=== PATIENT | male | born 1955 | race Hispanic/Latino ===

== ENCOUNTER → 2024-09-11 | Day surgery (SDC) | payer MEDICARE ==
[2024-09-10 09:07] LABS: BASOPHILS # (AUTO) 0.1 (0.0-0.1); BASOPHILS % 0.5 % (0.0-1.0); EOSINOPHILS # (AUTO) 0.5 (0.0-0.4); EOSINOPHILS % 5.4 % (0.0-6.0); HEMATOCRIT 45.2 % (38.2-49.6); LYMPHOCYTES # (AUTO) 1.4 (1.0-3.2); LYMPHOCYTES % 14.4 % (18.0-39.1); MEAN CORPUSCULAR HEMOGLOBIN 32.8 pg (28-32); MEAN CORPUSCULAR VOLUME 105.9 fL (81-99); MONOCYTES # (AUTO) 0.7 (0.2-0.8); MONOCYTES % 6.8 % (4.4-11.3); NEUTROPHILS # (AUTO) 6.9 (2.1-6.9); NEUTROPHILS % 72.7 % (38.7-80.0); PLATELET COUNT 133 x10e3/uL (140-360); RED BLOOD COUNT 4.27 x10e6/uL (4.3-5.7); RED CELL DISTRIBUTION WIDTH 13.2 % (11.7-14.4); WHITE BLOOD COUNT 9.52 x10e3/uL (4.8-10.8)
[2024-09-10 09:46] LABS: ALBUMIN/GLOBULIN RATIO 1.3 (0.8-2.0); ANION GAP 17.5 mmol/L (8-16); BILIRUBIN,TOTAL 1.5 mg/dL (0.2-1.2); CALCIUM 9.3 mg/dL (8.4-10.2); CREATININE, SERUM 2.34 mg/dL (0.72-1.25); POTASSIUM 4.5 mmol/L (3.5-5.1); TOTAL PROTEIN 7.1 g/dL (6.5-8.1)
[~2024-09-11] MED LIST: ACETAMINOPHEN 1000 MG/100 ML 100 ML IV ONE; AMIODARONE HCL200 MG PO; ASPIRIN EC81 MG PO; ATORVASTATIN CA20 MG PO; FENTANYL CITRATE/PF 100MCG/2 ML INJ ONE; FUROSEMIDE40 MG PO; GLIMEPIRIDE2 MG PO; GLYCOPYRROLATE INJ 0.2 MG/ML VIAL ONE; IRON INFUSION IV; LACTATED RINGER'S 1,000 ML ONE; LIDOCAINE HCL 2% LOCAL INJ 5 ML SDV VIAL INJ ONE; LOSARTAN POTASS25 MG PO; METOPROLOL TART25 MG PO; MIDAZOLAM HCL 2 MG/2 ML VIAL ONE; NEOSTIGMINE 1 MG/ML 10ML VIAL ONE; ONDANSETRON HCL INJ 2MG/ML 2ML 2 MG/ML VIAL ONE; PROPOFOL IV EMULSION 10 MG/ML 20 ML VIAL ONE; ROCURONIUM BROMIDE 1 ML IV ONE; SEVOFLURANE INHAL SOLN 250 ML PEN BTL ONE
[2024-09-11 10:14] VITALS: TEMP 97.8
[2024-09-11 11:30] VITALS: BP 149/84; PULSE 58; RESP 16; O2SAT 97
== END | disposition home or self-care (01) ==
LOC: OR 06:44
PROVIDERS: ATTEND Surgery
DX: K80.10 Calculus of gallbladder with chronic cholecystitis without obstruction (principal); K76.0 Fatty (change of) liver, not elsewhere classified; E11.9 Type 2 diabetes mellitus without complications; I10 Essential (primary) hypertension; E78.5 Hyperlipidemia, unspecified; Z01.810 Encounter for preprocedural cardiovascular examination; Z01.812 Encounter for preprocedural laboratory examination; Z01.818 Encounter for other preprocedural examination; Z79.82 Long term (current) use of aspirin; Z79.84 Long term (current) use of oral hypoglycemic drugs; Z79.899 Other long term (current) drug therapy
CPT/HCPCS: 36415; 47562; 71046; 80053; 85025; 88304; 93005; C1766; J0131; J2003; J2250; J2405; J2704; J2710; J3010; J7121

== ENCOUNTER 2025-04-12 08:59 | Inpatient (IN) | payer MEDICARE, OTHER ==
[~2025-04-12] VITALS: Ht 167.6 cm; Wt 90.7 kg
[~2025-04-12 08:59] MED LIST changes: -ACETAMINOPHEN 1000 MG/100 ML 100 ML IV ONE; -FENTANYL CITRATE/PF 100MCG/2 ML INJ ONE; -GLYCOPYRROLATE INJ 0.2 MG/ML VIAL ONE; -LACTATED RINGER'S 1,000 ML ONE; -LIDOCAINE HCL 2% LOCAL INJ 5 ML SDV VIAL INJ ONE; -MIDAZOLAM HCL 2 MG/2 ML VIAL ONE; -NEOSTIGMINE 1 MG/ML 10ML VIAL ONE; -ONDANSETRON HCL INJ 2MG/ML 2ML 2 MG/ML VIAL ONE; -PROPOFOL IV EMULSION 10 MG/ML 20 ML VIAL ONE; -ROCURONIUM BROMIDE 1 ML IV ONE; -SEVOFLURANE INHAL SOLN 250 ML PEN BTL ONE
[2025-04-12 09:06] VITALS: TEMP 98.4
[2025-04-12] MEDS ORDERED: ONDANSETRON HCL INJ 2MG/ML 2ML 2 MG/ML VIAL IV PRN (10:30)
[2025-04-12] MEDS ORDERED: Morphine 4mg INJECTION 4 MG/ML INJ IV PRN (10:30)
[2025-04-12] MEDS: SODIUM CHLORIDE 0.9% 1000ML 1,000 ML IV SCH (10:46)
[2025-04-12] MEDS: SODIUM CHLORIDE 0.9% 1000ML 1,000 ML IV STA (10:46)
[2025-04-12 10:56] LABS: EST GLOMERULAR FILTRATION RATE 29.0 ML/MIN (>=60)
[2025-04-12 11:35] LABS: BASOPHILS % 0.1 % (0.0-1.0); EOSINOPHILS % 1.2 % (0.0-6.0); LYMPHOCYTES % 13.2 % (18.0-39.1); MONOCYTES % 5.4 % (4.4-11.3); NEUTROPHILS % 79.8 % (38.7-80.0); RED CELL DISTRIBUTION WIDTH 18.6 % (11.7-14.4)
[2025-04-12 12:11] LABS: AMPHETAMINES SCREEN,URINE NEGATIVE (NEGATIVE); CANNABINOIDS SCREEN,URINE NEGATIVE (NEGATIVE); COCAINE SCREEN,URINE NEGATIVE (NEGATIVE); METHADONE SCREEN, URINE NEGATIVE (NEGATIVE); OPIATES SCREEN,URINE NEGATIVE (NEGATIVE)
[2025-04-12 13:00] VITALS: PULSE 75; RESP 17
[2025-04-12 13:07] LABS: PLATELET ESTIMATE ADEQUATE; PLATELET MORPHOLOGY COMMENT NORMAL; RBC MORPHOLOGY COMMENT ABNORMAL
[2025-04-12 14:33] VITALS: BP 129/69; PULSE 72; RESP 16; TEMP 98.1; O2SAT 97
[2025-04-12] MEDS ORDERED: ROCKLATAN 0.022.5 ML OP (14:50)
[2025-04-12] MEDS ORDERED: FUROSEMIDE20 MG PO (14:50)
[2025-04-12] MEDS ORDERED: DORZOLAMIDE-TIM10 ML OP (14:50)
[2025-04-12] MEDS ORDERED: DAILY VALUE1 EACH PO (14:50)
[2025-04-12 16:04] VITALS: BP 125/59; PULSE 62; RESP 20; TEMP 97.7; O2SAT 100
[2025-04-12] MEDS: SODIUM CHLORIDE 0.9% 250ML 250 ML IV ONE ×2 (16:23→23:23)
[2025-04-12] MEDS: SODIUM CHLORIDE 0.9% 250ML 250 ML ONE (16:23)
[2025-04-12 17:07] VITALS: BP 125/59; PULSE 62; RESP 20; TEMP 97.7; O2SAT 100
[2025-04-12] MEDS ORDERED: ACETAMINOPHEN 325 MG TAB PO PRN (17:45)
[2025-04-12 18:19] LABS: % IRON SATURATION 16 % (15-50)
[2025-04-12 20:00] VITALS: BP 125/54; PULSE 76; RESP 20; TEMP 98.8; O2SAT 96
[2025-04-13] VITALS (8 sets, daily range): BP systolic 115–139; BP diastolic 51–61; PULSE 67–96; RESP 18–20; TEMP 98–98.9; O2SAT 94–100
[2025-04-13] MEDS: FUROSEMIDE INJ 10 MG/ML 2 ML VIAL IV PRN (01:15)
[2025-04-13] MEDS: SODIUM CHLORIDE 0.9% 250ML 250 ML IV ONE (03:47)
[2025-04-13 07:48] LABS: BASOPHILS % 0.2 % (0.0-1.0); EOSINOPHILS % 2.8 % (0.0-6.0); LYMPHOCYTES % 10.1 % (18.0-39.1); MONOCYTES % 5.5 % (4.4-11.3); NEUTROPHILS % 80.9 % (38.7-80.0); RED CELL DISTRIBUTION WIDTH 24.9 % (11.7-14.4)
[2025-04-13 08:06] LABS: EST GLOMERULAR FILTRATION RATE 30.0 ML/MIN (>=60)
[2025-04-13] MEDS: CYANOCOBALAMIN INJ 1,000 MCG/ML VIAL IM SCH (08:46)
[2025-04-13] MEDS: CLOPIDOGREL BISULFATE 75 MG TAB PO SCH (08:46)
[2025-04-14] VITALS (8 sets, daily range): BP systolic 112–151; BP diastolic 49–55; PULSE 75–80; RESP 14–20; TEMP 98.1–98.9; O2SAT 91–97
[2025-04-14] MEDS ORDERED: ALBUTEROL/IPRATROPIUM 3 ML NEB NEB PRN (07:45)
[2025-04-14] MEDS ORDERED: BENZONATATE 100 MG CAP PO PRN (07:45)
[2025-04-14] MEDS ORDERED: DEXTROSE 50% SYRINGE 50 ML IV PRN (07:45)
[2025-04-14] MEDS: FUROSEMIDE INJ 10 MG/ML 4 ML VIAL IV ONE (10:34)
[2025-04-14] MEDS: INSULIN LISPRO 100 UNIT/1 ML 3ML VIAL SQ SCH (12:41)
[2025-04-14] MEDS: HYDRALAZINE HCL 25 MG TAB PO PRN (21:18)
[2025-04-15] VITALS (10 sets, daily range): BP systolic 128–140; BP diastolic 49–65; PULSE 74–92; RESP 17–20; TEMP 97.5–99.1; O2SAT 94–96
[2025-04-15 07:59] LABS: BASOPHILS % 0.2 % (0.0-1.0); EOSINOPHILS % 1.8 % (0.0-6.0); LYMPHOCYTES % 10.9 % (18.0-39.1); MONOCYTES % 4.6 % (4.4-11.3); NEUTROPHILS % 82.0 % (38.7-80.0); RED CELL DISTRIBUTION WIDTH 23.7 % (11.7-14.4)
[2025-04-15] MEDS: IRON SUCROSE 100 MG in SODIUM CHLORIDE 0.9% 100 ML IV SCH (08:20)
[2025-04-15 08:24] LABS: EST GLOMERULAR FILTRATION RATE 29.0 ML/MIN (>=60)
[2025-04-16] VITALS (10 sets, daily range): BP systolic 124–147; BP diastolic 54–64; PULSE 77–84; RESP 17–20; TEMP 97.6–98.7; O2SAT 93–97
[2025-04-16 05:49] LABS: EST GLOMERULAR FILTRATION RATE 32.0 ML/MIN (>=60)
[2025-04-16] MEDS: CYANOCOBALAMIN INJ 1,000 MCG/ML VIAL IM SCH (08:53)
[2025-04-16] MEDS: ASPIRIN 81 MG ENTERIC COATED PO SCH (08:53)
[2025-04-16 09:17] LABS: BASOPHILS % 0.2 % (0.0-1.0); EOSINOPHILS % 4.0 % (0.0-6.0); LYMPHOCYTES % 6.6 % (18.0-39.1); MONOCYTES % 3.7 % (4.4-11.3); NEUTROPHILS % 85.0 % (38.7-80.0); RED CELL DISTRIBUTION WIDTH 22.5 % (11.7-14.4)
[2025-04-17] VITALS (8 sets, daily range): BP systolic 121–157; BP diastolic 55–85; PULSE 78–86; RESP 18–20; TEMP 97.1–98.4; O2SAT 95–100
[2025-04-17 07:02] LABS: BASOPHILS % 0.1 % (0.0-1.0); EOSINOPHILS % 4.5 % (0.0-6.0); LYMPHOCYTES % 6.9 % (18.0-39.1); MONOCYTES % 4.9 % (4.4-11.3); NEUTROPHILS % 83.3 % (38.7-80.0); RED CELL DISTRIBUTION WIDTH 21.3 % (11.7-14.4)
[2025-04-17 07:43] LABS: EST GLOMERULAR FILTRATION RATE 38.0 ML/MIN (>=60)
[2025-04-17 15:18] LABS: % IRON SATURATION 24.0 % (15-50); LACTATE DEHYDROGENASE 357.0 IU/L (125-220)
[2025-04-17] MEDS ORDERED: ATORVASTATIN 40 MG TAB PO SCH (21:00)
[2025-04-18] MEDS ORDERED: METOPROLOL SUCCINATE 25 MG TAB XL PO SCH (09:00)
[2025-04-20 12:28] LABS: HAPTOGLOBIN 250 mg/dL (32-363)
== END 2025-04-17 22:39 | disposition home or self-care (01) | DRG 64 ==
LOC: ER 09:04 → ERHOLD 10:21 → MED/SURG3 13:41
PROVIDERS: ADMIT Internal Medicine; ATTEND Internal Medicine
PROC: 30233N1 Transfusion of Nonautologous Red Blood Cells into Peripheral Vein, Percutaneous Approach (ICD-10-PCS; principal; 2025-04-12)
PROC: 30233N1 Transfusion of Nonautologous Red Blood Cells into Peripheral Vein, Percutaneous Approach (ICD-10-PCS; 2025-04-12)
DX: I63.231 Cerebral infarction due to unspecified occlusion or stenosis of right carotid arteries (principal); G93.41 Metabolic encephalopathy; J18.9 Pneumonia, unspecified organism; D58.9 Hereditary hemolytic anemia, unspecified; N17.9 Acute kidney failure, unspecified; I13.0 Hypertensive heart and chronic kidney disease with heart failure and stage 1 through stage 4 chronic kidney disease, or unspecified chronic kidney disease; G81.94 Hemiplegia, unspecified affecting left nondominant side; D63.1 Anemia in chronic kidney disease; D50.9 Iron deficiency anemia, unspecified; E11.22 Type 2 diabetes mellitus with diabetic chronic kidney disease; E11.51 Type 2 diabetes mellitus with diabetic peripheral angiopathy without gangrene; Z79.84 Long term (current) use of oral hypoglycemic drugs; I48.91 Unspecified atrial fibrillation; Z79.01 Long term (current) use of anticoagulants; E78.5 Hyperlipidemia, unspecified; E53.8 Deficiency of other specified B group vitamins; M48.061 Spinal stenosis, lumbar region without neurogenic claudication; M48.07 Spinal stenosis, lumbosacral region; E66.9 Obesity, unspecified; Z68.32 Body mass index [BMI] 32.0-32.9, adult; H40.9 Unspecified glaucoma; Z79.899 Other long term (current) drug therapy; Z79.82 Long term (current) use of aspirin
CPT/HCPCS: 36415; 70450; 70551; 71045; 71250; 72131; 74176; 80048; 80053; 80307; 80320; 82248; 82270; 82550; 82607; 82728; 82746; 82948; 83010; 83036; 83540; 83615; 83880; 84155; 84165; 84466; 84484; 85025; 85045; 86850; 86900; 86920; 93005; 93306; 93880; 94799; 99284; J1756; J1938; J2470; J2543; J3420; J7030; J7050; P9016

== ENCOUNTER 2025-05-13 10:36 | Inpatient (IN) | payer MEDICARE, OTHER ==
[~2025-05-13] VITALS: Ht 172.7 cm; Wt 86.2 kg
[~2025-05-13 10:36] MED LIST changes: +DAILY VALUE1 EACH PO; +DORZOLAMIDE-TIM10 ML OP; +FUROSEMIDE20 MG PO; +ROCKLATAN 0.022.5 ML OP
[2025-05-13] MEDS ORDERED: SODIUM BICARBO650 MG PO (11:57)
[2025-05-13] MEDS ORDERED: FLOMAX0.4 MG PO (11:57)
[2025-05-13] MEDS ORDERED: CLOPIDOGREL75 MG PO (11:57)
[2025-05-13] MEDS ORDERED: BENEFIBER144 GM (11:57)
[2025-05-13] MEDS ORDERED: ONDANSETRON HCL INJ 2MG/ML 2ML 2 MG/ML VIAL IV PRN (12:00)
[2025-05-13] MEDS: FAMOTIDINE 20 MG/2 ML VIAL IV STA (12:23)
[2025-05-13] MEDS: ACETAMINOPHEN 325 MG TAB PO ONE (12:24)
[2025-05-13] MEDS: SODIUM CHLORIDE 0.9% 250ML 250 ML IV ONE (12:24)
[2025-05-13 12:32] VITALS: PULSE 67; RESP 20
[2025-05-13 13:30] VITALS: BP 120/52; PULSE 65; RESP 17; TEMP 98.4; O2SAT 100
[2025-05-13 16:00] VITALS: BP 108/60; PULSE 63; RESP 20; TEMP 98.1; O2SAT 90
[2025-05-13] MEDS ORDERED: SODIUM CHLORIDE 0.9% 250ML 250 ML IV PRN (16:45)
[2025-05-13 17:21] VITALS: BP 108/60; PULSE 63; RESP 20; TEMP 98.1; O2SAT 90
[2025-05-13] MEDS ORDERED: DEXTROSE 50% SYRINGE 50 ML IV PRN (19:15)
[2025-05-13] MEDS: FUROSEMIDE INJ 10 MG/ML 2 ML VIAL IV ONE (19:35)
[2025-05-13] MEDS: FUROSEMIDE INJ 10 MG/ML 2 ML VIAL IV PRN (19:36)
[2025-05-13] MEDS: SODIUM CHLORIDE FLUSH 10 ML SYR INJ PRN (19:36)
[2025-05-13 20:00] VITALS: BP 136/48; PULSE 65; RESP 20; TEMP 97.8; O2SAT 96
[2025-05-13] MEDS: INSULIN LISPRO 100 UNIT/1 ML 3ML VIAL SQ SCH (21:00)
[2025-05-13] MEDS: METOPROLOL TARTRATE 25 MG TAB PO SCH (21:24)
[2025-05-13] MEDS: ATORVASTATIN 40 MG TAB PO SCH (21:25)
[2025-05-13] MEDS: TAMSULOSIN HCL 0.4 MG CAP PO SCH (21:25)
[2025-05-13 22:18] VITALS: BP 143/53; PULSE 73; RESP 20; TEMP 97.8; O2SAT 96
[2025-05-14] VITALS (9 sets, daily range): BP systolic 117–138; BP diastolic 53–62; PULSE 63–79; RESP 17–20; TEMP 97.7–98.4; O2SAT 92–100
[2025-05-14 06:24] LABS: BASOPHILS % 0.2 % (0.0-1.0); EOSINOPHILS % 0.2 % (0.0-6.0); LYMPHOCYTES % 6.9 % (18.0-39.1); MONOCYTES % 4.0 % (4.4-11.3); NEUTROPHILS % 88.1 % (38.7-80.0); RED CELL DISTRIBUTION WIDTH 22.5 % (11.7-14.4)
[2025-05-14 06:38] LABS: INR 1.32
[2025-05-14 06:50] LABS: % IRON SATURATION 13.0 % (15-50); LACTATE DEHYDROGENASE 149.0 IU/L (125-220)
[2025-05-14 06:52] LABS: EST GLOMERULAR FILTRATION RATE 30.0 ML/MIN (>=60)
[2025-05-14] MEDS: DORZOLAMIDE/TIMOLOL (OPTH SOL) 10 ML DRPETTE OP SCH (08:47)
[2025-05-14] MEDS: AMIODARONE HCL 200 MG TAB PO SCH (08:47)
[2025-05-14] MEDS: SODIUM BICARBONATE 650 MG TAB PO SCH (08:48)
[2025-05-14] MEDS: FOLIC ACID 1 MG TAB PO SCH (08:48)
[2025-05-14] MEDS ORDERED: PREDNISONE 20 MG TAB PO SCH (09:00)
[2025-05-14] MEDS: CLOPIDOGREL BISULFATE 75 MG TAB PO SCH (11:58)
[2025-05-14] MEDS: NETARSUDIL MESYLAT OP SCH (20:32)
[2025-05-14] MEDS: LATANOPROST OP SCH (20:32)
[2025-05-14] MEDS: EPOETIN ALFA-EPBX 10,000 UNIT/ML VIAL SC ONE (23:12)
[2025-05-15 04:44] VITALS: BP 111/56; PULSE 71; RESP 17; TEMP 98.1; O2SAT 89
[2025-05-15 05:56] VITALS: BP 111/56; PULSE 71; RESP 17; TEMP 98.1; O2SAT 93
[2025-05-15 07:45] VITALS: BP 119/54; PULSE 69; RESP 18; TEMP 97.6; O2SAT 94
[2025-05-15] MEDS: IRON SUCROSE 100 MG in SODIUM CHLORIDE 0.9% 100 ML IV SCH (08:37)
[2025-05-15 09:55] VITALS: BP 119/54; PULSE 69; RESP 18; TEMP 97.6; O2SAT 94
[2025-05-15] MEDS: SODIUM FERRIC GLUCONATE COMPLX 250 MG in SODIUM CHLORIDE 0.9% 100 ML IV SCH (11:44)
[2025-05-15 16:39] VITALS: BP 107/57; PULSE 70; RESP 16; TEMP 97.9; O2SAT 94
[2025-05-15 20:00] VITALS: BP 122/54; PULSE 65; RESP 20; TEMP 98.5; O2SAT 93
[2025-05-16] VITALS (10 sets, daily range): BP systolic 98–125; BP diastolic 36–62; PULSE 63–84; RESP 17–20; TEMP 97.6–98.1; O2SAT 93–98
[2025-05-16 07:33] LABS: BASOPHILS % 0.3 % (0.0-1.0); EOSINOPHILS % 2.9 % (0.0-6.0); LYMPHOCYTES % 10.3 % (18.0-39.1); MONOCYTES % 4.8 % (4.4-11.3); NEUTROPHILS % 81.1 % (38.7-80.0); RED CELL DISTRIBUTION WIDTH 22.2 % (11.7-14.4)
[2025-05-16 08:25] LABS: EOSINOPHILS % (MANUAL) 2 % (0-7); LYMPHOCYTES % (MANUAL) 5 % (19-48); MONOCYTES % (MANUAL) 3 % (3.4-9.0); NEUTROPHILS % (MANUAL) 90 % (40-74); PLATELET ESTIMATE ADEQUATE; PLATELET MORPHOLOGY COMMENT NORMAL; RBC MORPHOLOGY COMMENT ABNORMAL
[2025-05-17] VITALS (8 sets, daily range): BP systolic 104–126; BP diastolic 47–62; PULSE 64–78; RESP 18–20; TEMP 97.6–98.4; O2SAT 93–100
[2025-05-17] MEDS: FUROSEMIDE INJ 10 MG/ML 4 ML VIAL IV ONE (18:00)
[2025-05-17] MEDS: POTASSIUM CHLORIDE 10MEQ EA PO ONE (18:00)
[2025-05-18] VITALS (22 sets, daily range): BP systolic 95–131; BP diastolic 37–63; PULSE 62–72; RESP 17–20; TEMP 97.4–98.2; O2SAT 94–98
[2025-05-18 05:46] LABS: BASOPHILS % 0.1 % (0.0-1.0); EOSINOPHILS % 3.0 % (0.0-6.0); LYMPHOCYTES % 11.2 % (18.0-39.1); MONOCYTES % 5.2 % (4.4-11.3); NEUTROPHILS % 79.8 % (38.7-80.0); RED CELL DISTRIBUTION WIDTH 21.6 % (11.7-14.4)
[2025-05-18 06:19] LABS: EST GLOMERULAR FILTRATION RATE 33.0 ML/MIN (>=60)
[2025-05-18] MEDS: PANTOPRAZOLE SOD 40 MG TABEC PO SCH (09:13)
[2025-05-18] MEDS: SODIUM CHLORIDE 0.9% 250ML 250 ML IV ONE (10:53)
[2025-05-18 11:08] LABS: PLATELET ESTIMATE ADEQUATE; PLATELET MORPHOLOGY COMMENT NORMAL
[2025-05-18] MEDS: FUROSEMIDE INJ 10 MG/ML 2 ML VIAL IV PRN (13:15)
[2025-05-18] MEDS ORDERED: ONDANSETRON HCL 4 MG ORAL DISINTEGRATING TAB PO PRN (13:45)
[2025-05-18] MEDS ORDERED: PROPOFOL IV EMULSION 10 MG/ML 20 ML VIAL ONE (16:11)
[2025-05-18] MEDS ORDERED: LIDOCAINE HCL 2% LOCAL INJ 5 ML SDV VIAL INJ ONE (16:11)
[2025-05-19] VITALS (9 sets, daily range): BP systolic 99–132; BP diastolic 51–68; PULSE 60–67; RESP 16–18; TEMP 97.7–98.6; O2SAT 93–98
[2025-05-20] VITALS: BP 127/61; PULSE 61; RESP 17; TEMP 98.1; O2SAT 98
[2025-05-20 04:00] VITALS: BP 131/62; PULSE 67; RESP 18; TEMP 98; O2SAT 95
[2025-05-20 07:39] VITALS: BP 101/53; PULSE 64; RESP 18; TEMP 98.3; O2SAT 97
[2025-05-20 07:43] LABS: BASOPHILS % 0.3 % (0.0-1.0); EOSINOPHILS % 3.6 % (0.0-6.0); LYMPHOCYTES % 11.3 % (18.0-39.1); MONOCYTES % 4.6 % (4.4-11.3); NEUTROPHILS % 79.7 % (38.7-80.0); RED CELL DISTRIBUTION WIDTH 23.2 % (11.7-14.4)
[2025-05-20 07:51] VITALS: PULSE 66; RESP 18; O2SAT 93
[2025-05-20 08:20] LABS: EST GLOMERULAR FILTRATION RATE 35.0 ML/MIN (>=60)
[2025-05-20 09:40] VITALS: BP 101/53; PULSE 64; RESP 18; TEMP 98.3; O2SAT 97
[2025-05-20 11:14] VITALS: BP 128/60; PULSE 66; RESP 16; TEMP 97.5; O2SAT 95
== END 2025-05-20 13:50 | disposition home or self-care (01) | DRG 811 ==
LOC: FSED 10:57 → ERHOLD 11:58 → MED/SURG3 13:52 → OBSVTOIN 19:15
PROVIDERS: ADMIT Internal Medicine; ATTEND Internal Medicine
PROC: 30233N1 Transfusion of Nonautologous Red Blood Cells into Peripheral Vein, Percutaneous Approach (ICD-10-PCS; principal; 2025-05-13)
PROC: 0DB68ZX Excision of Stomach, Via Natural or Artificial Opening Endoscopic, Diagnostic (ICD-10-PCS; 2025-05-18)
DX: D50.9 Iron deficiency anemia, unspecified (principal); K20.91 Esophagitis, unspecified with bleeding; L89.153 Pressure ulcer of sacral region, stage 3; K29.71 Gastritis, unspecified, with bleeding; I13.0 Hypertensive heart and chronic kidney disease with heart failure and stage 1 through stage 4 chronic kidney disease, or unspecified chronic kidney disease; I10 Essential (primary) hypertension; E11.9 Type 2 diabetes mellitus without complications; R60.0 Localized edema; I50.9 Heart failure, unspecified; E78.5 Hyperlipidemia, unspecified; D62 Acute posthemorrhagic anemia; I48.0 Paroxysmal atrial fibrillation; M19.90 Unspecified osteoarthritis, unspecified site; D63.1 Anemia in chronic kidney disease; N18.9 Chronic kidney disease, unspecified; K44.9 Diaphragmatic hernia without obstruction or gangrene; I95.9 Hypotension, unspecified; Z86.73 Personal history of transient ischemic attack (TIA), and cerebral infarction without residual deficits; Z79.84 Long term (current) use of oral hypoglycemic drugs; Z79.82 Long term (current) use of aspirin; Z79.02 Long term (current) use of antithrombotics/antiplatelets; Z90.49 Acquired absence of other specified parts of digestive tract; Z95.820 Peripheral vascular angioplasty status with implants and grafts
CPT/HCPCS: 36415; 43239; 74470; 80048; 80053; 82270; 82607; 82728; 82746; 82948; 83010; 83540; 83615; 84466; 85025; 85045; 85610; 85730; 86850; 86880; 86900; 86920; 88305; 88342; 94799; 99252; 99284; J1308; J1756; J1938; J2003; J2470; J2916; J7050; P9016

== ENCOUNTER → 2025-06-09 | Day surgery (SDC) | payer MEDICARE ==
[~2025-06-09] MED LIST changes: +BENEFIBER144 GM; +CLOPIDOGREL75 MG PO; +FLOMAX0.4 MG PO; +HYOSCYAMINE SULFATE 0.5 MG/ML INJ ONE; +LIDOCAINE HCL 2% LOCAL INJ 5 ML SDV VIAL INJ ONE; +SODIUM BICARBO650 MG PO
[2025-06-09] MEDS: LACTATED RINGER'S 1,000 ML ONE (14:55)
[2025-06-09 16:18] VITALS: TEMP 97.3
[2025-06-09 16:35] VITALS: BP 119/73; PULSE 64; RESP 16; O2SAT 96
== END | disposition home or self-care (01) ==
LOC: OR 13:14
PROVIDERS: ATTEND Internal Medicine Gastroenterology
DX: K52.89 Other specified noninfective gastroenteritis and colitis (principal); K57.30 Diverticulosis of large intestine without perforation or abscess without bleeding; K64.8 Other hemorrhoids; D50.9 Iron deficiency anemia, unspecified; I25.10 Atherosclerotic heart disease of native coronary artery without angina pectoris; E11.9 Type 2 diabetes mellitus without complications; N40.0 Benign prostatic hyperplasia without lower urinary tract symptoms; E78.00 Pure hypercholesterolemia, unspecified; N28.9 Disorder of kidney and ureter, unspecified; Z79.82 Long term (current) use of aspirin; Z79.02 Long term (current) use of antithrombotics/antiplatelets; Z79.84 Long term (current) use of oral hypoglycemic drugs; Z79.899 Other long term (current) drug therapy
CPT/HCPCS: 36415; 45378; 45380; 82948; J1980; J2003